=== PATIENT | female | born 1970 | race Caucasian/White ===

== ENCOUNTER 2019-02-01 18:08 | Emergency (ER) | payer MEDICAID, OTHER ==
[~2019-02-01] VITALS: Ht 160 cm; Wt 72.9 kg
[2019-02-01 18:13] VITALS: Ht 160 cm; Wt 72.9 kg
[2019-02-01] MEDS ORDERED: ONDANSETRON 4 MG INJ IV STA (19:06)
--- NOTE | 2019-02-01 19:06 | ERD ---
ER Documentation Chief Complaint Chief Complaint abdominal pain and vomiting x 3 days HPI The patient is a 48-year-old female, presenting to the ER because of intermittent abdominal pain, vomiting, constipation for 3 days, denies fever, chills, neck pain, chest pain, dyspnea, dysuria. She does not smoke nor drink Medical/surgical history: None ROS All systems reviewed and are negative except as per history of present illness. Medications Home Meds Active Scripts Polyethylene Glycol* (Miralax*) 17 Gm Powd.pack, 17 GM PO DAILY, #10 PACKET Prov:REJI TAPIA MD 02/01/19 Ondansetron (Ondansetron Odt) 4 Mg Tab.rapdis, 4 MG PO Q6H PRN for NAUSEA AND/OR VOMITING, #10 TAB Prov:REJI TAPIA MD 02/01/19 Hydrocodone/Acetaminophen (Ault 5-325 Tablet) 1 Each Tablet, 1 TAB PO Q6H PRN for PAIN, #7 TAB Prov:REJI TAPIA MD 02/01/19 Physical Exam Vitals Vital Signs Date Temp Pulse Resp B/P (MAP) Pulse Ox O2 O2 Flow FiO2 Time Delivery Rate 02/01/19 97.8 71 18 141/81 100 Room Air 19:13 (101) 02/01/19 97.8 69 18 162/84 100 18:13 (110) Physical Exam Const: No acute distress. Head: Atraumatic. Eyes: Normal Conjunctiva. ENT: Normal External Ears, Nose and Mouth. Neck: Full range of motion. No meningismus. Resp: Clear to auscultation bilaterally. Cardio: Regular rate and rhythm. Abd: Soft, non distended, normal bowel sounds, mild epigastric/right upper quadrant tenderness, no RLQ/rigidity/rebound/CVA tenderness Skin: No petechiae or rashes. Back: No midline or flank tenderness. Ext: No cyanosis, or edema. Neur: Awake and alert. No focal deficit Psych: Normal Mood and Affect. Result Diagram: 02/01/19192002/01/191920 Results 24 hrs Laboratory Tests Test 02/01/19 19:18 02/01/19 19:19 02/01/19 19:21 Bedside Urine pH (LAB) 6.0 Bedside Urine Protein (LAB) Negative Bedside Urine Glucose (UA) Negative Bedside Urine Ketones (LAB) Negative Bedside Urine Blood Trace-intact Bedside Urine Nitrite (LAB) Negative Bedside Urine Leukocyte Esterase Trace (L POC Beta HCG, Qualitative NEGATIVE White Blood Count 8.3 10^3/ul Red Blood Count 5.12 10^6/ul Hemoglobin 11.2 g/dl Hematocrit 37.4 % Mean Corpuscular Volume 73.0 fl Mean Corpuscular Hemoglobin 21.9 pg Mean Corpuscular 29.9 g/dl Hemoglobin Concent Red Cell Distribution Width 15.8 % Platelet Count 79 10^3/UL Mean Platelet Volume fl Immature Granulocytes % 0.200 % Neutrophils % % Lymphocytes % % Monocytes % % Eosinophils % % Basophils % % Nucleated Red Blood Cells % 0.0 /100WBC Immature Granulocytes # 0.020 10^3/ul Neutrophils # 10^3/ul Lymphocytes # 10^3/ul Monocytes # 10^3/ul Eosinophils # 10^3/ul Basophils # 10^3/ul Nucleated Red Blood Cells # 10^3/ul Sodium Level 140 mmol/L Potassium Level 3.6 mmol/L Chloride Level 102 mmol/L Carbon Dioxide Level 26 mmol/L Anion Gap 12 Blood Urea Nitrogen 7 mg/dl Creatinine 0.80 mg/dl Est Glomerular Filtrat Rate mL/min > 60 mL/min Glucose Level 102 mg/dl Calcium Level 9.7 mg/dl Total Bilirubin 0.7 mg/dl Direct Bilirubin 0.00 mg/dl Indirect Bilirubin 0.7 mg/dl Aspartate Amino Transf (AST/SGOT) 24 IU/L Alanine 14 IU/L Aminotransferase (ALT/SGPT) Alkaline Phosphatase 90 IU/L Total Protein 9.7 g/dl Albumin 4.9 g/dl Globulin 4.80 g/dl Albumin/Globulin Ratio 1.02 Lipase 91 U/L Current Medications Medications Dose Sig/Juan Start Time Status Last (Trade) Ordered Route PRN Stop Time Admin Dose Reason Admin Ondansetron 4 mg ONCE STAT 02/01/19 DC 02/01/19 HCl (Zofran IV 19:06 19:23 Inj) 02/01/19 19:07 Sodium 1,000 ml @ Q1H ONCE 02/01/19 02/01/19 Chloride 1,000 mls/hr IV 19:30 19:23 02/01/19 20:29 Morphine 2 mg ONCE STAT 02/01/19 DC 02/01/19 Sulfate IV 19:10 19:23 (morphine) 02/01/19 19:12 Procedures/[place] [id number] Radiology Main Line: [phone] DIAGNOSTIC IMAGING REPORT Patient: BRIANA SIMEON : 1970 Age: 48 Sex: F MR #: [id number] DOS: 02/01/19 1910 Ordering MD: REJI TAPIA MD Location: E/R Room/Bed: PROCEDURE: Abdominal ultrasound, limited. CLINICAL INDICATION: Abdominal pain. TECHNIQUE: Multiple real-time images were acquired of the patient's right upper abdomen utilizing a high resolution transducer. COMPARISON: None FINDINGS: The liver demonstrates normal echogenicity and size measuring 12.5 cm. There is no focal mass or intrahepatic biliary ductal dilatation. The portal vein is patent. The gallbladder is not distended. There is a non mobile echogenic gallstone within the gallbladder neck measuring 2.2 cm. There is no pericholecystic fluid. There is mild gallbladder wall thickening measuring 5.0 mm. There is focal tenderness over the gallbladder. The common bile duct measures 3.6 mm in maximal dimension. The pancreas is obscured by overlying bowel gas. No free fluid is identified. The right kidney is normal size and echogenicity measuring 8.3 cm. There is no focal renal mass or echogenic calculus identified. There is no obstructive uropathy. IMPRESSION: Cholelithiasis with mild gallbladder wall thickening and positive sonographic Powell's sign. Pancreas obscured by overlying bowel gas. .Adriano Funez MD, MD Date Time Electronically viewed and signed by .Adriano Funez MD, MD on 02/01/2019 20:00 .T/ CC: REJI TAPIA MD [id number] MEDICAL MAKING DECISION: The patient is a 48-year-old female, presenting with acute pericolic, was treated with Zofran 4 mg IV for nausea, morphine 2 mg IV for pain, 1 L normal saline for clinical dehydration with good response, is stable for outpatient follow-up The differential diagnoses considered include but are not limited to cholelithiasis, cholecystitis, choledocholithiasis, cholangitis, pancreatitis, hepatitis, gastritis, peptic ulcer disease, gastric ulcer, appendicitis, cystitis, diverticulitis, partial small bowel obstruction. Departure Diagnosis: Primary Impression: Biliary colic Additional Impressions: Thrombocytopenia Anemia Condition: Good Comments She was discharged with Ault, Zofran, MiraLAX I discussed the findings with the patient. I advised the patient to follow-up with the primary physician and the general surgeon Dr. Lynch in about 1-2 days, sooner if needed and return if any concern. Disclaimer: Inadvertent spelling and grammatical errors are likely due to EHR/dictation software use and do not reflect on the overall quality of patient care. Also, please note that the electronic time recorded on this note does not necessarily reflect the actual time of the patient encounter. REJI TAPIA MD Feb 01, 2019 19:06
[2019-02-01] MEDS ORDERED: morphine 2 MG INJ IV STA (19:10)
[2019-02-01 19:13] VITALS: BP 141/81; PULSE 71; RESP 18
[2019-02-01] MEDS ORDERED: SOD CHLORIDE 0.9% 1,000 ML IV ONE (19:30)
[2019-02-01] MEDS ORDERED: HYDR-4011 PO (20:09)
[2019-02-01] MEDS ORDERED: ONDA4TAB14 PO (20:10)
[2019-02-01] MEDS ORDERED: POLY17PO6 PO (20:11)
[2019-02-01] MEDS ORDERED: ONDANSETRON (ODT) 4 MG TAB ODT STA (20:36)
[2019-02-01] MEDS ORDERED: HYDROCODONE/APAP (10/325) TAB PO ONE (21:00)
== END 2019-02-01 20:51 | disposition home or self-care (01) ==
LOC: E/R 18:08
DX: K80.20 Calculus of gallbladder without cholecystitis without obstruction (principal); D69.6 Thrombocytopenia, unspecified; D64.9 Anemia, unspecified
CPT/HCPCS: 36415; 76705; 80053; 81003; 81025; 83690; 85025; 96374; 96375; J2270; J2405; J7030; Z7502; Z7610